=== PATIENT | female | born 1940 | race Caucasian/White ===

== ENCOUNTER → 2019-03-22 | Outpatient (CLI) | payer MEDICARE, OTHER ==
--- NOTE | 2019-03-22 15:18 | Diagnostic Imaging Report ---
EXAMINATION: CHEST 2 VIEWS INDICATION: Cough, hiatal hernia, bronchitis. COMPARISON: None FINDINGS: TUBES and LINES: None. LUNGS: Lungs are hyperinflated. There is no evidence of pneumonia or pulmonary edema. PLEURA: No pleural effusion or pneumothorax. HEART AND MEDIASTINUM: The cardiomediastinal silhouette is unremarkable. There are atherosclerotic calcifications within the aorta. BONES AND SOFT TISSUES: No acute osseous abnormality. UPPER ABDOMEN: No free air under the diaphragm. IMPRESSION: Emphysematous changes of the lungs. No acute radiographic abnormality. Signed by: Dr. Megan Altamirano MD on 03/22/2019 3:15 PM
== END ==
LOC: RAD 14:06
PROVIDERS: ATTEND Internal Medicine
DX: J41.0 Simple chronic bronchitis (principal); K44.9 Diaphragmatic hernia without obstruction or gangrene
CPT/HCPCS: 71046